=== PATIENT | male | born 1980 | race American Indian/Alaskan Native ===

== ENCOUNTER 2021-05-21 11:03 | Emergency (ER) | payer BC ==
[2021-05-21] MEDS ORDERED: KETOROLAC 60 MG/2 ML INJ IM ONE (12:23)
[2021-05-21] MEDS ORDERED: dexAMETHasone 4 MG/ML VIAL IM STA (12:23)
--- NOTE | 2021-05-21 12:47 | Emergency Department Report ---
ED General Adult HPI - General Chief complaint: Extremity Injury, Lower Stated complaint: LEFT LEG PAIN Time Seen by Provider: 05/21/21 11:57 Source: patient Mode of arrival: Ambulatory Limitations: No Limitations - History of Present Illness Initial comments: 40-year-old -[place] male patient presents with complaints of left leg pain x1 week. Patient reports the pain starts in his upper thigh and radiates down throughout the entire leg. Pain does not go into the foot per patient. He denies any injuries, fever/chills/sweats, recent long travel, swelling, skin changes, or history of DVT/PE/cancer. Patient states pain seems to worsen with movement and ambulation. Excedrin helps somewhat per patient. No numbness/tingling or weakness in the leg per patient. He does report history of one episode of sciatica in the left leg, however the pain does not start in the low back this time per patient. Quality: stabbing, aching, sharp - Related Data Previous Rx's Medication Instructions Recorded Last Taken Type Naproxen [Naprosyn] 500 mg PO BID PRN #20 tab 05/21/21 Unknown Rx methocarbamoL [Methocarbamol] 750 - 1,500 mg PO TID PRN #30 tab 05/21/21 Unknown Rx predniSONE [Deltasone] 20 mg PO BID 3 Days #6 tab 05/21/21 Unknown Rx Allergies Allergy/AdvReac Type Severity Reaction Status Date / Time No Known Allergies Allergy Verified 05/21/21 11:53 ED Review of Systems ROS: Stated complaint: LEFT LEG PAIN Other details as noted in HPI Constitutional: denies: chills, diaphoresis, fever, malaise, weakness Gastrointestinal: denies: abdominal pain Musculoskeletal: denies: joint swelling Skin: denies: change in color Neurological: denies: numbness, paresthesias, abnormal gait ED Past Medical Hx - Past Medical History Previous Medical History?: No - Surgical History Past Surgical History?: No - Social History Smoking Status: Never Smoker - Medications Home Medications: Home Medications Medication Instructions Recorded Confirmed Last Taken Type Naproxen [Naprosyn] 500 mg PO BID PRN #20 tab 05/21/21 Unknown Rx methocarbamoL [Methocarbamol] 750 - 1,500 mg PO TID PRN #30 tab 05/21/21 Unknown Rx predniSONE [Deltasone] 20 mg PO BID 3 Days #6 tab 05/21/21 Unknown Rx ED Physical Exam - General Limitations: No Limitations General appearance: alert, in no apparent distress, obese - Head Head exam: Present: atraumatic, normocephalic - Eye Eye exam: Present: normal appearance. Absent: scleral icterus - Respiratory Respiratory exam: Absent: respiratory distress - Cardiovascular Cardiovascular Exam: Present: regular rate - Expanded Lower Extremity Exam Left Hip exam: Present: full ROM, tenderness (mild tenderness in the groin ) Upper Leg exam: Present: normal inspection, full ROM Knee exam: Present: normal inspection, full ROM Lower Leg exam: Present: normal inspection Neuro vascular tendon exam: Absent: pulse deficit Gait: Positive: observed and normal - Back Exam Back exam: Present: paraspinal tenderness (left sacroiliac). Absent: vertebral tenderness - Expanded Back Exam Expanded Back exam: Absent: saddle anesthesia Back exam: Sciatic Notch Tenderness: Left - Neurological Exam Neurological exam: Present: alert, oriented X3, normal gait - Psychiatric Psychiatric exam: Present: normal affect, normal mood - Skin Skin exam: Present: warm, dry, intact, normal color. Absent: rash ED Course Vital Signs 05/21/21 11:53 Temperature 97.6 F Pulse Rate 68 Respiratory 16 Rate Blood Pressure 121/85 O2 Sat by Pulse 98 Oximetry ED Medical Decision Making - Medical Decision Making 40-year-old -[place] male patient presents with complaints of left leg pain x1 week. Patient reports the pain starts in his upper thigh and radiates down throughout the entire leg. Pain does not go into the foot per patient. He denies any injuries, fever/chills/sweats, recent long travel, swelling, skin changes, or history of DVT/PE/cancer. Patient states pain seems to worsen with movement and ambulation. Excedrin helps somewhat per patient. No numbness/tingling or weakness in the leg per patient. He does report history of one episode of sciatica in the left leg, however the pain does not start in the low back this time per patient. Critical care attestation.: If time is entered above; I have spent that time in minutes in the direct care of this critically ill patient, excluding procedure time. ED Disposition Clinical Impression: Left leg pain Disposition: HOME / SELF CARE / HOMELESS Is pt being admited?: No Condition: Stable Instructions: Quadriceps Strain, Quadriceps Strain Rehab-SportsMed, Sciatica, [id number] Prescriptions: predniSONE [Deltasone] 20 mg PO BID 3 Days #6 tab methocarbamoL [Methocarbamol] 750 - 1,500 mg PO TID PRN #30 tab PRN Reason: muscle spasm/tightness Naproxen [Naprosyn] 500 mg PO BID PRN #20 tab PRN Reason: pain Referrals: [facility] [Provider Group] - 3-5 Days Forms: Work/School Release Form(ED)
[2021-05-21 14:00] VITALS: BP 128/76
--- NOTE | 2021-05-21 14:21 | Vascular Lab Report ---
DUPLEX DOPPLER LOWER EXTREMITY VEINS, LEFT INDICATION: pain in lower and upper leg. TECHNIQUE: Duplex doppler imaging was performed through the veins of the left lower extremity using venous compr ession and other maneuvers. COMPARISON: No relevant prior imaging study available. FINDINGS: Left Common femoral vein: Negative. Left Superficial femoral vein: Negative. Left Popliteal vein: Negative. Left Calf veins: Negative. Additional findings: None.. IMPRESSION: 1. No sonographic evidence for DVT in the left lower extremity. Signer Name: Edwar Moy MD Signed: 05/21/2021 2:16 PM Workstation Name: [id number]
== END 2021-05-21 13:59 | disposition home or self-care (01) ==
LOC: ED 11:03
DX: M79.605 Pain in left leg (principal)
CPT/HCPCS: 93971; 96372; 99283; J1100; J1885

== ENCOUNTER 2021-05-30 02:38 | Emergency (ER) | payer BC ==
[2021-05-30 02:53] VITALS: BP 140/85
== END 2021-05-30 03:36 | disposition left against medical advice (07) ==
LOC: ED 02:38
DX: R52 Pain, unspecified (principal); Z53.21 Procedure and treatment not carried out due to patient leaving prior to being seen by health care provider